=== PATIENT | female | born 1940 | race Caucasian/White ===

== ENCOUNTER 2024-04-22 19:24 | Emergency (ER) | payer MEDICARE, OTHER ==
[~2024-04-22] VITALS: Ht 167.6 cm; Wt 59.0 kg
[2024-04-22 19:36] VITALS: BP_SYST 103; PULSE 120; RESP 20; O2SAT 98
[2024-04-22 22:00] VITALS: TEMP 98.8
[2024-04-23 00:05] VITALS: RESP 18; O2SAT 93
[2024-04-23 00:10] VITALS: BP_SYST 109; PULSE 91
== END 2024-04-23 01:30 | disposition home or self-care (01) ==
LOC: SED 19:24
DX: K94.23 Gastrostomy malfunction (principal); Z88.2 Allergy status to sulfonamides; Z88.6 Allergy status to analgesic agent; Z91.040 Latex allergy status
CPT/HCPCS: 74240; 99284